=== PATIENT | female | born 1985 ===

== ENCOUNTER 2020-12-08 00:22 | Inpatient (IN) | payer BC, SELFPAY ==
[2020-12-08] MEDS ORDERED: Ondansetron PF 4 MG/2 ML Vial IVP PRN ×2 (02:08→15:44)
[2020-12-08] MEDS ORDERED: Morphine 2 MG/ML VIAL SLOW IVP PRN ×2 (02:08→15:44)
[2020-12-08 02:09] VITALS: BMI 36.6
[2020-12-08] MEDS: Morphine 4 MG/ML VIAL SLOW IVP PRN ×4 (02:20→12:29)
[2020-12-08] MEDS: D5 1/2 NS w/20 mEq KCL 1,000 ML IV SCH ×3 (02:20→19:22)
[2020-12-08] MEDS: Piperacillin/Tazobactam 3.375 GM in Sodium Chloride 0.9% 100 ML IVPB SCH ×3 (02:20→19:23)
[2020-12-08] MEDS ORDERED: Bupivacaine 0.25% HCL 30 ML VIAL ONE (13:13)
[2020-12-08] MEDS ORDERED: Lidocaine 1% w/Epinephrine 1:100K 20 ML VIAL ONE (13:13)
[2020-12-08] MEDS ORDERED: Fentanyl 100 MCG/2 ML VIAL ONE ×3 (13:45→16:27)
[2020-12-08] MEDS ORDERED: Dexmedetomidine 200 MCG/2 ML VIAL ONE (13:46)
[2020-12-08] MEDS ORDERED: Midazolam HCl 2 mg/2 ml Vial ONE (13:54)
[2020-12-08] MEDS ORDERED: PROPOFOL 200 MG/20 ML VIAL ONE (14:02)
[2020-12-08] MEDS ORDERED: Glycopyrrolate 0.2 MG/ML 5 ML SYRINGE ONE (14:02)
[2020-12-08] MEDS ORDERED: Lidocaine 1% PF 5 ML VIAL ONE (14:02)
[2020-12-08] MEDS ORDERED: Ondansetron PF 4 MG/2 ML Vial ONE (14:02)
[2020-12-08] MEDS ORDERED: Dexamethasone 20 MG/5 ML VIAL ONE (14:02)
[2020-12-08] MEDS ORDERED: Rocuronium Bromide 10 MG/ML (10ML VIAL) ONE (14:02)
[2020-12-08] MEDS ORDERED: Albumin 5% 250 ML ONE (14:52)
[2020-12-08] MEDS ORDERED: Dextrose 50% Abboject 50 ML SYRINGE SLOW IVP PRN (15:44)
[2020-12-08] MEDS ORDERED: Morphine 4 MG/ML VIAL SLOW IVP PRN (15:44)
[2020-12-08] MEDS ORDERED: HYDROcodone/Acetaminophen 10/325 mg Tablet PO PRN (15:44)
[2020-12-08] MEDS ORDERED: Promethazine HCl 25 MG/ML VIAL IM PRN ×2 (15:44→15:46)
[2020-12-08] MEDS ORDERED: Dextrose 5% in Water 1,000 ML IV PRN (15:44)
[2020-12-08] MEDS ORDERED: Mag-Al 1200 mg/1200 mg/30 ML UDCUP PO PRN (15:44)
[2020-12-08] MEDS ORDERED: Calcium Carbonate 500 MG ChewTAB PO PRN (15:44)
[2020-12-08] MEDS ORDERED: hydrALAZINE 20 MG/ML VIAL SLOW IVP PRN (15:44)
[2020-12-08] MEDS ORDERED: Morphine Sulfate 2 MG/ML SYRINGE SLOW IVP PRN (15:46)
[2020-12-08] MEDS ORDERED: Promethazine HCl 25 MG/ML VIAL IVPB PRN (15:46)
[2020-12-08] MEDS ORDERED: Ondansetron HCl/PF 4 MG/2 ML Vial IVP PRN (15:46)
[2020-12-08] MEDS ORDERED: Promethazine HCl 25 MG/ML VIAL ONE (15:58)
[2020-12-08 15:59] LABS: SARS-CoV-2 PCR by NAA Not Detected (NotDetected)
[2020-12-08] MEDS: Ketorolac Tromethamine 30 MG/ML VIAL IVP SCH (17:49)
[2020-12-08] MEDS ORDERED: Piperacillin/Tazobactam 3.375 GM in Sodium Chloride 0.9% 100 ML IVPB SCH (18:00)
[2020-12-08] MEDS: Famotidine/PF 20 mg/2ml Vial SLOW IVP SCH (20:55)
[2020-12-08] MEDS: HYDROcodone/Acetaminophen 10/325 mg Tablet PO PRN (21:23)
[2020-12-09] MEDS: Ketorolac Tromethamine 30 MG/ML VIAL IVP SCH ×2 (00:04→06:04)
[2020-12-09] MEDS: Piperacillin/Tazobactam 3.375 GM, Admixture Fee 1 EACH in Sodium Chloride 0.9% 100 ML IVPB SCH ×2 (00:05→06:04)
[2020-12-09] MEDS: D5 1/2 NS w/20 mEq KCL 1,000 ML IV SCH (00:05)
[2020-12-09] MEDS: Famotidine 20 MG TAB PO SCH ×2 (00:05→08:20)
[2020-12-09 05:35] LABS: #Lymphocytes 1.4 thou/uL (1.20-3.40); #Neutrophils 12.6 thou/uL (1.40-6.50); %Basophils 0.1 % (0.0-1.0); %Eosinophils 0.1 % (0.0-10.0); %Lymphocytes 9.2 % (21.0-51.0); %Monocytes 6.4 % (0.0-10.0); %Neutrophils 84.3 % (42.0-75.0); Hemoglobin 10.9 g/dL (12.0-16.0); Mean Corpuscular HGB CONC 32.1 g/dL (32.0-36.0); Mean Corpuscular Hemoglobin 30.7 pg (27.0-31.0); Mean Corpuscular Volume 95.7 fL (78.0-98.0); Platelet Count 263 thou/uL (130-400); RBC Distribution Width 11.2 % (11.5-14.5); Red Blood Cell (RBC) Count 3.55 mill/uL (4.20-5.40); White Blood Cell (WBC) Count 14.9 thou/uL (4.8-10.8)
[2020-12-09 05:59] LABS: ALT (SGPT) 31 U/L (8-55); AST (SGOT) 28 U/L (5-34); Albumin 3.1 g/dL (3.5-5.0); Alkaline Phosphatase 66 U/L (40-110); Anion Gap 10 mmol/L (10-20); BUN (Urea Nitrogen) 4 mg/dL (7.0-18.7); Bilirubin, Total 0.8 mg/dL (0.2-1.2); Calc. Creatinine Clearance 159 mL/min (70-130); Calcium 7.7 mg/dL (7.8-10.44); Carbon Dioxide 22 mmol/L (22-29); Chloride 106 mmol/L (98-107); Globulin 2.2 g/dL (2.4-3.5); Glucose 158 mg/dL (70-105); Lipase Less than 4 U/L (8-78); Potassium 3.8 mmol/L (3.5-5.1); Protein, Total 5.3 g/dL (6.0-8.3); Sodium 134 mmol/L (136-145)
[2020-12-09] MEDS: HYDROcodone/Acetaminophen 10/325 mg Tablet PO PRN (08:20)
[2020-12-09 08:23] VITALS: BP 101/62; TEMP 98.7
[2020-12-09] MEDS: Famotidine/PF 20 mg/2ml Vial SLOW IVP SCH (12:23)
== END 2020-12-09 12:34 | disposition home or self-care (01) | DRG 418 ==
LOC: SJJU 01:38
PROVIDERS: ADMIT Surgery; ATTEND Surgery
PROC: 0FT44ZZ Resection of Gallbladder, Percutaneous Endoscopic Approach (ICD-10-PCS; principal; 2020-12-08)
PROC: 04Q Lower Arteries, Repair (ICD-10-PCS; 2020-12-08)
DX: K81.0 Acute cholecystitis (principal); K82.1 Hydrops of gallbladder; I97.52 Accidental puncture and laceration of a circulatory system organ or structure during other procedure; E66.9 Obesity, unspecified; Z20.822 Contact with and (suspected) exposure to COVID-19; Y83.8 Other surgical procedures as the cause of abnormal reaction of the patient, or of later complication, without mention of misadventure at the time of the procedure; Z68.36 Body mass index [BMI] 36.0-36.9, adult
CPT/HCPCS: 36415; 80053; 83690; 85025; 87070; 87077; 87186; 87205; 88304; J1100; J1885; J2250; J2270; J2405; J2543; J2550; J2704; J3010; J3480; J3490; P9045; S0020; S0028; U0003; U0005